=== PATIENT | female | born 1965 | race Caucasian/White ===

== ENCOUNTER → 2020-07-22 | Outpatient (CLI) | payer OTHER | LOC: KOH-I 09:34 | DX: M79.671 Pain in right foot (principal) | CPT/HCPCS: 73630 ==

== ENCOUNTER → 2020-08-05 | Outpatient (CLI) | payer OTHER | LOC: KOH-I 10:34 | DX: S92.001A Unspecified fracture of right calcaneus, initial encounter for closed fracture (principal) | CPT/HCPCS: 73630; 73650 ==

== ENCOUNTER → 2020-08-14 | Outpatient (CLI) | payer OTHER | LOC: EXRD 08:25 | DX: Z00.00 Encounter for general adult medical examination without abnormal findings (principal); Z78.0 Asymptomatic menopausal state | CPT/HCPCS: 77080 ==

== ENCOUNTER → 2020-09-16 | Outpatient (CLI) | payer OTHER | LOC: EMI 09-13 10:15 | DX: S92.311A Displaced fracture of first metatarsal bone, right foot, initial encounter for closed fracture (principal) | CPT/HCPCS: 73718 ==

== ENCOUNTER → 2021-03-05 | Outpatient (CLI) | payer OTHER | LOC: KOH-I 01-09 11:15 | DX: M51.17 Intervertebral disc disorders with radiculopathy, lumbosacral region (principal) | CPT/HCPCS: 72148 ==